=== PATIENT | female | born 1980 | race African-American/Black ===

== ENCOUNTER 2023-10-01 21:38 | Emergency (ER) | payer BC ==
[2023-10-01 23:01] LABS: CORONAVIRUS COVID-19 NAA POSITIVE (NEGATIVE); INFLUENZA A NAA NEGATIVE (NEGATIVE); INFLUENZA B NAA NEGATIVE (NEGATIVE); RESPIRATORY SYNCYTIAL VIR NAA NEGATIVE (NEGATIVE)
== END 2023-10-02 00:10 | disposition home or self-care (01) ==
LOC: MW.ED 21:38
DX: U07.1 COVID-19 (principal); I10 Essential (primary) hypertension; Z79.899 Other long term (current) drug therapy
CPT/HCPCS: 0241U; 93005; 99283; 93010

== ENCOUNTER 2024-11-18 20:27 | Emergency (ER) | payer BC ==
[2024-11-18] MEDS: LORazepam 2 MG/ML SDV IVPUSH PRN (20:55)
== END 2024-11-18 22:18 | disposition home or self-care (01) ==
LOC: MW.ED 20:27
DX: I10 Essential (primary) hypertension (principal); R51.9 Headache, unspecified; H53.8 Other visual disturbances; R45.7 State of emotional shock and stress, unspecified; Z79.51 Long term (current) use of inhaled steroids; Z79.899 Other long term (current) drug therapy
CPT/HCPCS: 70450; 96374; 99284; J2060